=== PATIENT | male | born 1955 | race Caucasian/White ===

== ENCOUNTER → 2020-10-22 | Emergency (ER) | payer OTHER ==
[~2020-10-22] VITALS: Ht 162.6 cm; Wt 84.4 kg
[~2020-10-22] MED LIST: FORTAMET1000 MG; RAMIPRIL5 MG; SIMVASTATIN20 MG; TOPROL XL50 M1
== END | disposition home or self-care (01) ==
LOC: ER 12:16
DX: R10.84 Generalized abdominal pain (principal)